=== PATIENT | male | born 1935 | race Caucasian/White ===

== ENCOUNTER 2021-10-18 12:43 | Inpatient (IN) | payer MEDICARE, OTHER ==
[~2021-10-18] VITALS: Ht 177.8 cm; Wt 81.0 kg
[~2021-10-18 12:43] MED LIST: AMLODIPINE-VAL1 EAC2 PO; DICL75ER PO; FLUSAL2505 INH; Flomax0.4 MG PO; MICROZIDE12.5 M1 PO
[2021-10-18 13:37] LABS: BASOPHILS ABSOLUTE AUTO 0.04 K/mm3 (0.00-0.23); BASOPHILS PERCENT AUTO 0 % (0-2); EOSINOPHILS ABSOLUTE AUTO 0.08 K/mm3 (0.00-0.68); EOSINOPHILS PERCENT AUTO 1 % (0-6); Hematocrit 45.1 % (37.0-53.0); IMMATURE GRAN ABSOLUTE AUTO 0.03 K/mm3 (0.00-0.10); IMMATURE GRAN PERCENT AUTO 0 % (0-1); LYMPHOCYTES ABSOLUTE AUTO 1.79 K/mm3 (0.84-5.20); LYMPHOCYTES PERCENT AUTO 15 % (21-46); MONOCYTES ABSOLUTE AUTO 1.07 K/mm3 (0.16-1.47); MONOCYTES PERCENT AUTO 9 % (4-13); Mean Corpuscular HGB Conc 33.3 g/dL (31.5-36.5); Mean Corpuscular Volume 87 fL (80-100); Mean Platelet Volume 9.3 fL (9.1-12.4); NEUTROPHILS ABSOLUTE AUTO 9.26 K/mm3 (1.96-9.15); NEUTROPHILS PERCENT AUTO 76 % (41-73); Platelet Count 241 K/mm3 (150-400); RDW Coefficient Variation 12.9 % (11.7-14.2); RDW Standard Deviation 41.2 fL (35.1-46.3); Red Blood Cell Count 5.17 M/mm3 (4.30-5.90); White Blood Cell Count 12.27 K/mm3 (4.00-11.30)
[2021-10-18 13:58] LABS: Alanine Aminotransfer (ALT/SGP 22 U/L (12-78); Albumin, Blood 3.5 g/dL (3.4-5.0); Alk Phos 45 U/L (50-136); Anion Gap 11 mmol/L (6-16); Aspartate Aminotrans (AST/SGOT 17 U/L (12-37); Bilirubin, Total 0.8 mg/dL (0.1-1.0); Blood Urea Nitrogen 42 mg/dL (8-24); Bun/Creatinine Ratio 45.1 (12.0-20.0); CO2, Blood 27 mmol/L (21-32); Calcium, Blood 9.6 mg/dL (8.5-10.1); Chloride, Blood 102 mmol/L (98-108); Creatinine, Blood 0.93 mg/dL (0.60-1.20); Globulin, Blood 3.4 g/dL (2.2-4.0); Glomerular Filtration Rate >60 (60-); Glucose, Blood 118 mg/dL (70-99); Potassium, Blood 3.8 mmol/L (3.5-5.5); Sodium, Blood 140 mmol/L (136-145); Total Protein, Blood 6.9 g/dL (6.4-8.2)
[2021-10-18 21:57] LABS: Influenza A, PCR NEGATIVE (NEGATIVE); Influenza B, PCR NEGATIVE (NEGATIVE); Resp Syncytial Virus, PCR NEGATIVE (NEGATIVE); SARS-Cov-2 (COVID-19) PCR, MMC NEGATIVE (NEGATIVE)
[2021-10-19 05:04] LABS: BASOPHILS ABSOLUTE AUTO 0.03 K/mm3 (0.00-0.23); BASOPHILS PERCENT AUTO 0 % (0-2); EOSINOPHILS ABSOLUTE AUTO 0.07 K/mm3 (0.00-0.68); EOSINOPHILS PERCENT AUTO 1 % (0-6); Hematocrit 40.9 % (37.0-53.0); Hemoglobin 13.7 g/dL (13.5-17.5); IMMATURE GRAN ABSOLUTE AUTO 0.04 K/mm3 (0.00-0.10); IMMATURE GRAN PERCENT AUTO 0 % (0-1); LYMPHOCYTES ABSOLUTE AUTO 1.57 K/mm3 (0.84-5.20); LYMPHOCYTES PERCENT AUTO 13 % (21-46); MONOCYTES ABSOLUTE AUTO 1.22 K/mm3 (0.16-1.47); MONOCYTES PERCENT AUTO 10 % (4-13); Mean Corpuscular HGB 28.9 pg (26.0-34.0); Mean Corpuscular HGB Conc 33.5 g/dL (31.5-36.5); Mean Corpuscular Volume 86 fL (80-100); Mean Platelet Volume 9.7 fL (9.1-12.4); NEUTROPHILS ABSOLUTE AUTO 9.44 K/mm3 (1.96-9.15); NEUTROPHILS PERCENT AUTO 76 % (41-73); Platelet Count 235 K/mm3 (150-400); RDW Coefficient Variation 12.8 % (11.7-14.2); RDW Standard Deviation 40.4 fL (35.1-46.3); Red Blood Cell Count 4.74 M/mm3 (4.30-5.90); White Blood Cell Count 12.37 K/mm3 (4.00-11.30)
--- NOTE | 2021-10-19 06:18 | NUR ---
Rn summary: Patient is alert and oriented. Pt had NG tube placed in ED. Pt has had 300 cc of brown return since arrival this shift. Pt denies pain or nausia. Patient has been able to rest well. NPO receiving IV clinamix. Vital signs are stable. Call light in reach. Will continue to monitor.
[2021-10-19 06:28] LABS: Alanine Aminotransfer (ALT/SGP 20 U/L (12-78); Albumin, Blood 2.9 g/dL (3.4-5.0); Alk Phos 39 U/L (50-136); Anion Gap 7 mmol/L (6-16); Aspartate Aminotrans (AST/SGOT 18 U/L (12-37); Bilirubin, Total 0.6 mg/dL (0.1-1.0); Blood Urea Nitrogen 42 mg/dL (8-24); Bun/Creatinine Ratio 50.3 (12.0-20.0); CO2, Blood 30 mmol/L (21-32); Calcium, Blood 8.9 mg/dL (8.5-10.1); Chloride, Blood 105 mmol/L (98-108); Creatinine, Blood 0.84 mg/dL (0.60-1.20); Globulin, Blood 2.9 g/dL (2.2-4.0); Glomerular Filtration Rate >60 (60-); Glucose, Blood 123 mg/dL (70-99); Potassium, Blood 3.9 mmol/L (3.5-5.5); Sodium, Blood 142 mmol/L (136-145); Total Protein, Blood 5.8 g/dL (6.4-8.2)
[2021-10-19] MEDS ORDERED: PROAIR RESPICL90 MCG INH (08:49)
[2021-10-19] MEDS ORDERED: AMLO10 PO (08:50)
[2021-10-19] MEDS ORDERED: DICL75ER PO (08:51)
[2021-10-19] MEDS ORDERED: SALMETEROL INH (08:52)
[2021-10-19] MEDS ORDERED: FLUTICASONE INH (08:52)
[2021-10-19] MEDS ORDERED: HYDCHL50 PO (08:53)
[2021-10-19] MEDS ORDERED: OLME20 PO (08:55)
--- NOTE | 2021-10-19 09:58 | NUR ---
Initial Interview with [facility] Consultant 1. Who did you speak with? Spoke with patient 2. What is the patient's prior level of functions? Independent lives with life partner Mary 3. What is the patient's current living situation? Patient lives with independently with life partner Mary. Patient has a safe and stable home with running water, heat electricity, and sewage. No barriers at this time. 4. Is the patient and/or family able to provide transportation to and from doctor's appointments and chart picker prescriptions? Yes, patient able to drive and has transportation. 5. Does patient still drive? Yes, patient able to drive and has transportation. 6. POA/PCP/NOK: PCP-Dr. Vasiliy Cosby/NOK-life partner Mary 7. Discharge goals: -TBD -DME: patient has a walker in good repair and uses occasionally if needed -Medication Management: self-management -Preferred Pharmacy: [facility] -Housekeeping need: None; patient's life partner does most of the housekeeping -Cooking: patient's life partner does most of the housekeeping 8. List barriers to discharge: None at this time 9. Discharge Plan: TBD 10. PCP Follow up appointment: Will be scheduled within seven calendar days of discharge. Transition of care will contact patient.
--- NOTE | 2021-10-19 17:44 | NUR ---
SUMMARY PT RESTING QUIETLY IN BED, WAKES EASILY, IS PLEASANT AND COOPERATIVE WITH CARE, PT UP WITH MIN ASSIST TO USE THE URINAL AT THE BEDSIDE, PT HAS DENIED ANY PAIN OR NAUSEA T/O THE DAY, NG REMAINS TO SUCION, PT ARAM WELL, WAITING FOR A BED AT [facility], ON THE WAIT LIST, IN TO VISIT TODAY, NO COMPLAINTS, VSS, WILL CONT TO MONITOR
--- NOTE | 2021-10-20 02:49 | NUR ---
Elderly White Male with hiatal hearnia outlet obstruction continues stable except continued low grade temp below 99.8. On climimix & lipids & NPO. NG to LISX with large amts of bile colored drainage. Denies unmet needs. Pending [facility] transfer to [facility] for repair of hiatal hernia outlet obstruction. [id number] Merry at [facility] updated on status. Open bed pending.
[2021-10-20 05:12] LABS: BASOPHILS ABSOLUTE AUTO 0.03 K/mm3 (0.00-0.23); BASOPHILS PERCENT AUTO 0 % (0-2); EOSINOPHILS ABSOLUTE AUTO 0.13 K/mm3 (0.00-0.68); EOSINOPHILS PERCENT AUTO 1 % (0-6); Hematocrit 41.6 % (37.0-53.0); IMMATURE GRAN ABSOLUTE AUTO 0.03 K/mm3 (0.00-0.10); IMMATURE GRAN PERCENT AUTO 0 % (0-1); LYMPHOCYTES ABSOLUTE AUTO 1.39 K/mm3 (0.84-5.20); LYMPHOCYTES PERCENT AUTO 14 % (21-46); MONOCYTES ABSOLUTE AUTO 1.13 K/mm3 (0.16-1.47); MONOCYTES PERCENT AUTO 11 % (4-13); Mean Corpuscular HGB 29.2 pg (26.0-34.0); Mean Corpuscular HGB Conc 33.7 g/dL (31.5-36.5); Mean Corpuscular Volume 87 fL (80-100); Mean Platelet Volume 9.8 fL (9.1-12.4); NEUTROPHILS ABSOLUTE AUTO 7.54 K/mm3 (1.96-9.15); NEUTROPHILS PERCENT AUTO 74 % (41-73); Platelet Count 209 K/mm3 (150-400); RDW Coefficient Variation 12.6 % (11.7-14.2); RDW Standard Deviation 40.1 fL (35.1-46.3); White Blood Cell Count 10.25 K/mm3 (4.00-11.30)
[2021-10-20 06:02] LABS: Alanine Aminotransfer (ALT/SGP 28 U/L (12-78); Albumin, Blood 2.8 g/dL (3.4-5.0); Alk Phos 39 U/L (50-136); Anion Gap 6 mmol/L (6-16); Aspartate Aminotrans (AST/SGOT 22 U/L (12-37); Bilirubin, Total 0.7 mg/dL (0.1-1.0); Blood Urea Nitrogen 37 mg/dL (8-24); Bun/Creatinine Ratio 48.2 (12.0-20.0); CO2, Blood 32 mmol/L (21-32); Calcium, Blood 8.7 mg/dL (8.5-10.1); Chloride, Blood 103 mmol/L (98-108); Creatinine, Blood 0.77 mg/dL (0.60-1.20); Globulin, Blood 2.9 g/dL (2.2-4.0); Glomerular Filtration Rate >60 (60-); Glucose, Blood 133 mg/dL (70-99); Potassium, Blood 3.6 mmol/L (3.5-5.5); Sodium, Blood 141 mmol/L (136-145); Total Protein, Blood 5.7 g/dL (6.4-8.2); Triglycerides 95 mg/dL (30-160)
--- NOTE | 2021-10-20 17:07 | NUR ---
SUMMARY PT RESTING IN BED, WAKES EASILY, HAS BEEN PLEASANT AND COOPERATIVE WITH CARE T/O THE DAY, PT USES THE URINAL AT THE BEDSIDE, NG REMAINS TO SUCTION, GREEN BROWN OUTPUT, PT DENIES PAIN OR NAUSEA, ABD XR DONE, PT STILL AWAITING A BED AT [facility], WILL NOTIFY LIFE PARTNER IF PT TO BE TRANSFERRED, VSS, NO COMPLAINTS, WILL CONT TO MONITOR
--- NOTE | 2021-10-20 17:52 | NUR ---
NOTIFIED AIRBRUSH ARTIST MD, DR DIALLO, THERE IS NO GI ON TO PASS NG, INFORMED OF NG POSITION, PT DENIES ANY PAIN OR NAUSEA, SMALL AMOUNT OF CLEAR OUTPUT FROM NG AT THIS TIME
--- NOTE | 2021-10-21 04:16 | NUR ---
RADHA REMAINED STABLE ALL NIGHT. [facility] CALLED TO CHECK ON HIS CONDITION. THEY ARE WAITING ON AN OPEN BED FOR HIM. HE MIGHT BE TRANSFERRED DURING THE DAY TOMORROW
[2021-10-21 06:01] LABS: BASOPHILS ABSOLUTE AUTO 0.06 K/mm3 (0.00-0.23); BASOPHILS PERCENT AUTO 1 % (0-2); EOSINOPHILS ABSOLUTE AUTO 0.25 K/mm3 (0.00-0.68); EOSINOPHILS PERCENT AUTO 3 % (0-6); Hematocrit 44.1 % (37.0-53.0); Hemoglobin 14.7 g/dL (13.5-17.5); IMMATURE GRAN ABSOLUTE AUTO 0.04 K/mm3 (0.00-0.10); IMMATURE GRAN PERCENT AUTO 0 % (0-1); LYMPHOCYTES ABSOLUTE AUTO 1.34 K/mm3 (0.84-5.20); LYMPHOCYTES PERCENT AUTO 14 % (21-46); MONOCYTES ABSOLUTE AUTO 1.06 K/mm3 (0.16-1.47); MONOCYTES PERCENT AUTO 11 % (4-13); Mean Corpuscular HGB 28.9 pg (26.0-34.0); Mean Corpuscular HGB Conc 33.3 g/dL (31.5-36.5); Mean Corpuscular Volume 87 fL (80-100); Mean Platelet Volume 10.1 fL (9.1-12.4); NEUTROPHILS ABSOLUTE AUTO 6.87 K/mm3 (1.96-9.15); NEUTROPHILS PERCENT AUTO 72 % (41-73); Platelet Count 215 K/mm3 (150-400); RDW Coefficient Variation 12.8 % (11.7-14.2); RDW Standard Deviation 40.3 fL (35.1-46.3); Red Blood Cell Count 5.09 M/mm3 (4.30-5.90); White Blood Cell Count 9.62 K/mm3 (4.00-11.30)
[2021-10-21 06:20] LABS: Alanine Aminotransfer (ALT/SGP 65 U/L (12-78); Albumin, Blood 2.6 g/dL (3.4-5.0); Albumin/Globulin Ratio 0.8 (0.8-1.8); Alk Phos 41 U/L (50-136); Anion Gap 6 mmol/L (6-16); Aspartate Aminotrans (AST/SGOT 55 U/L (12-37); Bilirubin, Total 1.2 mg/dL (0.1-1.0); Blood Urea Nitrogen 33 mg/dL (8-24); Bun/Creatinine Ratio 41.9 (12.0-20.0); CO2, Blood 31 mmol/L (21-32); Calcium, Blood 8.6 mg/dL (8.5-10.1); Chloride, Blood 103 mmol/L (98-108); Creatinine, Blood 0.79 mg/dL (0.60-1.20); Globulin, Blood 3.4 g/dL (2.2-4.0); Glomerular Filtration Rate >60 (60-); Glucose, Blood 122 mg/dL (70-99); Potassium, Blood 3.5 mmol/L (3.5-5.5); Sodium, Blood 140 mmol/L (136-145)
--- NOTE | 2021-10-21 18:05 | NUR ---
SHIFT SUMMARY PATIENT RESTING QUIETLY. PATIENT AWAITING BED AVAILABLE AT [facility] FOR HIATAL HERNIA SURGERY. [facility] PREDICTING SUNDAY OR FOR TRANSFER. PATIENT PICC INSERTED TODAY ON RIGHT UPPER ARM. TOLERATED WELL AND CHEST X-RAY CONFIRMED PLACEMENT. TPN STARTED. NG TUBE TO INTERMITENT SUCTION. 600 ML OUT THIS SHIFT. VITAL SIGNS STABLE. WILL CONTINUE TO MONITOR.
--- NOTE | 2021-10-22 05:22 | NUR ---
RADHA REMAINED STABLE THROGHOUT THE NIGHT WITH HER TPN RUNNING AND HER NG SUCTION. THE NURSE AT THE OTHER FACILITY CALLED TO GET AN UPDATE ON HIM. STILL WAITING ON AN OPEN BED FOR TRANSFER
[2021-10-22 06:22] LABS: Triglycerides 113 mg/dL (30-160)
[2021-10-22 08:27] LABS: Anion Gap 11 mmol/L (6-16); Blood Urea Nitrogen 33 mg/dL (8-24); Bun/Creatinine Ratio 35.5 (12.0-20.0); CO2, Blood 31 mmol/L (21-32); Calcium, Blood 9.1 mg/dL (8.5-10.1); Chloride, Blood 101 mmol/L (98-108); Creatinine, Blood 0.93 mg/dL (0.60-1.20); Glomerular Filtration Rate >60 (60-); Glucose, Blood 110 mg/dL (70-99); Phosphorus, Blood 3.2 mg/dL (2.5-4.9); Potassium, Blood 3.9 mmol/L (3.5-5.5); Sodium, Blood 143 mmol/L (136-145)
--- NOTE | 2021-10-22 18:33 | NUR ---
SHIFT SUMMARY PATIENT RESTING IN BED. PATIENT IS AWAITING TRANSFER TO [facility] FOR HIATAL HERNIA SURGERY REPAIR. PATIENT IS RECEIVING TPN. NG TUBE WAS IN HIATAL HERNIA. REPOSITIONED NG TUBE AND PLACEMENT CONFIRMED BY X-RAY. VITAL SIGNS STABLE. WILL CONTINUE TO MONITOR.
[2021-10-23 04:41] LABS: BASOPHILS ABSOLUTE AUTO 0.07 K/mm3 (0.00-0.23); BASOPHILS PERCENT AUTO 1 % (0-2); EOSINOPHILS ABSOLUTE AUTO 0.38 K/mm3 (0.00-0.68); EOSINOPHILS PERCENT AUTO 3 % (0-6); Hemoglobin 15.1 g/dL (13.5-17.5); IMMATURE GRAN ABSOLUTE AUTO 0.09 K/mm3 (0.00-0.10); IMMATURE GRAN PERCENT AUTO 1 % (0-1); LYMPHOCYTES ABSOLUTE AUTO 1.49 K/mm3 (0.84-5.20); LYMPHOCYTES PERCENT AUTO 14 % (21-46); MONOCYTES ABSOLUTE AUTO 1.14 K/mm3 (0.16-1.47); MONOCYTES PERCENT AUTO 10 % (4-13); Mean Corpuscular HGB 29.2 pg (26.0-34.0); Mean Corpuscular HGB Conc 33.6 g/dL (31.5-36.5); Mean Corpuscular Volume 87 fL (80-100); Mean Platelet Volume 10.8 fL (9.1-12.4); NEUTROPHILS ABSOLUTE AUTO 7.88 K/mm3 (1.96-9.15); NEUTROPHILS PERCENT AUTO 71 % (41-73); Platelet Count 227 K/mm3 (150-400); RDW Coefficient Variation 13.1 % (11.7-14.2); RDW Standard Deviation 41.1 fL (35.1-46.3); Red Blood Cell Count 5.17 M/mm3 (4.30-5.90); White Blood Cell Count 11.05 K/mm3 (4.00-11.30)
--- NOTE | 2021-10-23 04:51 | NUR ---
RADHA'S VITALS WERE STABLE. NG IS STILL SUCTIONING, TPN IS STILL RUNNING. STILL WAITING FOR TRANSFER PLACEMENT GREEN LIGHT
[2021-10-23 05:47] LABS: Alanine Aminotransfer (ALT/SGP 174 U/L (12-78); Albumin, Blood 2.6 g/dL (3.4-5.0); Albumin/Globulin Ratio 0.8 (0.8-1.8); Alk Phos 61 U/L (50-136); Anion Gap 9 mmol/L (6-16); Aspartate Aminotrans (AST/SGOT 122 U/L (12-37); Bilirubin, Total 1.4 mg/dL (0.1-1.0); Blood Urea Nitrogen 35 mg/dL (8-24); Bun/Creatinine Ratio 43.4 (12.0-20.0); CO2, Blood 28 mmol/L (21-32); Chloride, Blood 102 mmol/L (98-108); Creatinine, Blood 0.81 mg/dL (0.60-1.20); Globulin, Blood 3.2 g/dL (2.2-4.0); Glomerular Filtration Rate >60 (60-); Glucose, Blood 130 mg/dL (70-99); Sodium, Blood 139 mmol/L (136-145); Total Protein, Blood 5.8 g/dL (6.4-8.2)
--- NOTE | 2021-10-23 18:02 | NUR ---
SHIFT SUMMARY PATIENT RESTING IN BED. PATIENT IS PLEASANT AND COOPERATIVE WITH CARE. PATIENT IS RECEIVING TPN AND HAS AN NG TUBE TO SUCTION. PATIENT IS AWAITING TO BE TRANSFERRED TO [facility] FOR HIATAL HERNIA SURGERY. VITAL SIGNS STABLE. WILL CONTINUE TO MONITOR.
--- NOTE | 2021-10-23 23:39 | NUR ---
2233: PHONE CALL TO UPDATE PARTNER DARIA PAGE, PERMISSION TO SPEAK WITH DARIA VERBALLY GIVEN BY RADHA.
--- NOTE | 2021-10-24 03:07 | NUR ---
SPOKE TO [facility] RN FROM [facility], GAVE PT STATUS UPDATE.
--- NOTE | 2021-10-24 03:55 | NUR ---
SHIFT SUMMARY PT REMAINS AWAITING TRANSFER TO [facility] FOR SURGICAL REPAIR OF HIATAL HERNIA. NG TUBE IN PLACE, SUCTIONING GREEN/BROWN FLUID. TPN INFUSING AT 95MLS/HR INTO PICC IN RIGHT ARM. PT DENIES NAUSEA, VOMITING, OR ABD PAIN AT THIS TIME. VSS. NO ACUTE CHANGES. A&O X4. USES URINAL INDEPENDENTLY AT THE BEDSIDE.
[2021-10-24 06:20] LABS: Alanine Aminotransfer (ALT/SGP 207 U/L (12-78); Albumin, Blood 2.6 g/dL (3.4-5.0); Albumin/Globulin Ratio 0.8 (0.8-1.8); Alk Phos 75 U/L (50-136); Anion Gap 8 mmol/L (6-16); Aspartate Aminotrans (AST/SGOT 104 U/L (12-37); Bilirubin, Total 1.3 mg/dL (0.1-1.0); Blood Urea Nitrogen 36 mg/dL (8-24); Bun/Creatinine Ratio 46.8 (12.0-20.0); CO2, Blood 27 mmol/L (21-32); Chloride, Blood 103 mmol/L (98-108); Creatinine, Blood 0.77 mg/dL (0.60-1.20); Globulin, Blood 3.4 g/dL (2.2-4.0); Glomerular Filtration Rate >60 (60-); Glucose, Blood 122 mg/dL (70-99); Potassium, Blood 4.3 mmol/L (3.5-5.5); Sodium, Blood 138 mmol/L (136-145)
--- NOTE | 2021-10-24 06:29 | NUR ---
WOUND CARE COMPLETED. CLEANSED WOUND WITH WOUND CLEANSER, COVERED WITH MEPILEX TO SACRAL AND RIGHT GLUTEAL PRESSURE ULCERS.
--- NOTE | 2021-10-24 12:39 | NUR ---
FAMILY AT BEDSIDE AND INFORMATION GIVEN ABOUT [facility] AND ROOM NUMBER PATIENT WILL BE GOING TO. REPORTS CALLED TO YARIEL FORD. TRANSPORT TO BE HERE AFTER 1300 TODAY.
== END 2021-10-24 14:25 | disposition short-term general hospital (02) | DRG 392 ==
LOC: ER 12:43 → MEDS 12:44
PROVIDERS: Family Medicine; Internal Medicine Endocrinology, Diabetes & Metabolism; Physician Assistant; ADMIT Internal Medicine
DX: K44.0 Diaphragmatic hernia with obstruction, without gangrene (principal); E46 Unspecified protein-calorie malnutrition; Z23 Encounter for immunization; E86.0 Dehydration; Z20.822 Contact with and (suspected) exposure to COVID-19; J45.40 Moderate persistent asthma, uncomplicated; I10 Essential (primary) hypertension; Z68.26 Body mass index [BMI] 26.0-26.9, adult; Z85.46 Personal history of malignant neoplasm of prostate; Z85.828 Personal history of other malignant neoplasm of skin; Z90.89 Acquired absence of other organs; Z98.890 Other specified postprocedural states; Z79.891 Long term (current) use of opiate analgesic; Z79.899 Other long term (current) drug therapy
CPT/HCPCS: 0241U; 36415; 36569; 71045; 74018; 74176; 76705; 80053; 80069; 82947; 83605; 83690; 83735; 84100; 84478; 85025; 90686; 93005; 93010; 94640; 94664; 94760; 96374; 99285-25; A9270; C1751; G0008; G0378; J1650; J2405; J7030; Q9963

== ENCOUNTER → 2021-12-15 | Outpatient (CLI) | payer MEDICARE, OTHER ==
[~2021-12-15] MED LIST changes: +AMLO10 PO; +FLUTICASONE INH; +HYDCHL50 PO; +OLME20 PO; +PROAIR RESPICL90 MCG INH; +SALMETEROL INH
== END | disposition home or self-care (01) ==
LOC: LAB 11:07 → PLD 11:07 → LAB SHORT 11:07
DX: L57.0 Actinic keratosis (principal)
CPT/HCPCS: 88305

== ENCOUNTER → 2023-12-26 | Outpatient (CLI) | payer MEDICARE, OTHER | END | disposition home or self-care (01) | LOC: LAB SHORT 12:36 → PLD 12:36 | DX: C44.42 Squamous cell carcinoma of skin of scalp and neck (principal) | CPT/HCPCS: 88305 ==